=== PATIENT | male | born 1955 | race Caucasian/White ===

== ENCOUNTER 2017-01-06 16:40 | Emergency (ER) | payer OTHER ==
[~2017-01-06 16:40] MED LIST: ASPIRIN81 MG PO; AUGMENTIN PO; COMPAZINE5 M1; DECADRON PO; FAMOTIDINE20 MG PO; FLONASE16 GM; LASIX20 MG PO; MIRALAX17 GM PO; MORPHINE SULFAT60 MG PO; REMERON30 MG PO; SENOKOT S1 TA1 PO; VELCADE INJ; ZOVIRAX400 MG PO; [UNRECOGNIZED DRUG - OTHER] INJ
[2017-01-07] MEDS ORDERED: MORPHINE SULFAT30 M3 PO (11:36)
[2017-01-07] MEDS ORDERED: PATIENT'S PHARMACY (11:36)
[2017-01-07] MEDS ORDERED: PROAIR HFA8.5 GM INH (11:36)
[2017-01-07] MEDS ORDERED: ACYCLOVIR200 MG PO (11:37)
[2017-01-07] MEDS ORDERED: GABAPENTIN300 M2 PO (11:37)
[2017-01-07] MEDS ORDERED: ASPIRIN81 MG PO (18:03)
== END 2017-01-07 | disposition home or self-care (01) ==
LOC: CED 16:40
DX: Z53.21 Procedure and treatment not carried out due to patient leaving prior to being seen by health care provider (principal)
CPT/HCPCS: J2405

== ENCOUNTER 2017-01-07 10:23 | Inpatient (IN) | payer OTHER ==
--- NOTE | ~2017-01-07 | CR63 ---
[facility] A Service of [facility] & [facility] RADIOLOGY TEXT RESULTS PATIENT: JORDAN PURVIS LOCATION: [facility] : 54 UNIT #: [id number] AGE: [address]: Johnny Mckeon MD SEX: M ORDER DR: [id number] [facility] [address] [facility]. [place], [place] [address] [id number] I MR#: [id number] Acc #: [id number] NAME: JORDAN PURVIS : 1955 SEX: M STUDY DATE/TIME: 01/07/2017 12:37 [facility]85 STUDY DESCRIPTION: CR Chest 2 View Attending Physician: Nancy Alanis M.D. Ordering Physician: Kit Hurley M.D. Primary Care Physician: Dov Tracy M.D. MEDICAL IMAGING REPORT This report is preliminary unless electronic signature is present EXAM Portable chest 01/07/2017 COMPARISON STUDIES None CLINICAL HISTORY Short of air. Cough and congestion, symptoms for 1 week. FINDINGS Heart size is normal. Minimal subtle interstitial prominence at the right lung base without consolidation, question mild right lower lobe interstitial infiltrate. Left lung is clear, the exam is otherwise unremarkable. Dictated by... Bryant Ochoa M.D. THIS IS AN ELECTRONICALLY VERIFIED REPORT Bryant Ochoa M.D. at 01/08/2017 3:52 PM SHANON/bobby TD: 01/07/2017 17:28 JOB #: [id number] MEDICAL IMAGING REPORT Page 1 of 1 COPY
--- NOTE | ~2017-01-07 | HP ---
Unit #: [id number] #: [id number] Patient: JORDAN PURVIS [id number] [address] [place], [place] [address] [id number] I MR#: [id number] NAME: JORDAN PURVIS ROOM: 75923 Age: 61 Sex: M Admission Date: 01/07/2017 : 1955 Attending Physician: Nancy Alanis M.D. Primary Care Physician: Dov Tracy M.D. HISTORY AND PHYSICAL CHIEF COMPLAINT Abnormal labs. HISTORY OF PRESENT ILLNESS The patient is a 61-year-old male with a past medical history of multiple myeloma, status post stem cell transplant, who presented to the emergency department for evaluation of the above. The patient states that he has been feeling bad since January 01, 2017, when he had a prolonged time in the airport at [place]. He states that he has had "chest congestion." He has had increasing shortness of breath and productive cough. He reports chills, but no documented fever. He apparently saw his primary care physician yesterday and was told that he had abnormal labs and to go to the emergency department for further evaluation. White blood cell count was noted to be 1.7 in the office. The patient came to the emergency department yesterday but left before being seen. Today, he called Dr. Tracy and was told to come to the emergency department for further evaluation. In the emergency department, chest x-ray was done and showed possible mild infiltrate at the right base. Laboratory is notable for a white blood cell count of 1.1 with an absolute neutrophil count of 385 and platelets of 86,000. He was given one liter of normal saline in the emergency department, as well as Rocephin and azithromycin. He is being admitted to [facility] for evaluation and further treatment. PAST MEDICAL HISTORY 1. Admission to [facility] about a year ago for multiple myeloma-related issue (no records). 2. Multiple myeloma, status post stem cell transplant in November 2015, followed by Dr. Hebert. He is currently receiving Revlimid. He last saw Dr. Hebert within the past month. He did receive radiation treatment, six out of 10 planned treatments in 2014. PAST SURGICAL HISTORY 1. Colonoscopy on October 23, 2015, showed small internal hemorrhoids, mild sigmoid and descending colon diverticulosis, and a large polyp in the transverse colon. Pathology report showed tubular villous adenoma, but no high-grade dysplasia or malignancy was identified. 2. Stem cell transplant. 3. Kyphoplasty. SOCIAL HISTORY The patient lives with his . He is currently on disability. He Unit #: [id number] #: [id number] Patient: JORDAN PURVIS states that he worked at the [employer]. He quit smoking four to five years ago. He denies alcohol use. FAMILY HISTORY Notable for his dad committing suicide. He states that his mother is in her 80s and is healthy. ALLERGIES No known allergies. HOME MEDICATIONS 1. Morphine sulfate 30 mg daily. 2. ProAir q.8 hours p.r.n. 3. Gabapentin 600 t.i.d. 4. Acyclovir 400 mg twice daily. REVIEW OF SYSTEMS A complete review of systems is negative except as indicated in the History of Present Illness. The patient states that he has had decreased appetite. He denies any vomiting or diarrhea. He states that he has lost an unknown amount of weight within the past week. PHYSICAL EXAMINATION VITAL SIGNS: Temperature is 98.3, pulse 84, respirations 18, blood pressure 103/66, and oxygen saturation is 93% on room air. GENERAL: Patient is a very pleasant male who is awake, alert, and in no acute distress. HEENT: Head is atraumatic. Mucous membranes are moist. NECK: Supple. Trachea is midline. CARDIOVASCULAR: Regular rate and rhythm. LUNGS: A few scattered rhonchi. Breathing is not labored. ABDOMEN: Soft and nontender with bowel sounds present in all four quadrants. EXTREMITIES: Nontender with no pedal edema. NEUROLOGIC: Patient is awake and alert. He follows commands. PSYCHIATRIC: Mood and affect are normal. Patient is cooperative. SKIN: Skin of examined areas is warm and dry. DIAGNOSTIC STUDIES LABORATORY: Comprehensive metabolic panel notable for sodium of 132, potassium 3.4, CO2 of 21, anion gap 8, glucose 160, and calcium is 7.9 but corrects to 8.4 when albumin of 3.4 is accounted for. INR is 1.1. Complete blood count notable for white blood cell count of 1.1, absolute neutrophil count is 385, hemoglobin and hematocrit 12.8 and 39.2, respectively, and platelets are 86,000. Lactic acid is 1. IMAGING: Chest x-ray shows interstitial prominence involving the right base concerning for mild infiltrate. ASSESSMENT The patient is a 61-year-old male with: 1. Pneumonia. The patient received Rocephin and azithromycin in the emergency department. 2. Severe neutropenia with an absolute neutrophil count of 385. The patient has reported chills but no documented fever. He is afebrile in the emergency department today. He states that his "counts have been good." He is not sure if he has received Granix in the past. He is currently on Revlimid which is likely contributing to Unit #: [id number] #: [id number] Patient: JORDAN PURVIS neutropenia. 3. Thrombocytopenia. The patient's platelet count is 86,000 with no baseline for comparison. Again, this is likely related to Revlimid. 4. Multiple myeloma followed by Dr. Hebert. 5. Hypokalemia. 6. Former smoker. PLAN 1. Admit to intermediate level. 2. Healthy heart diet. 3. Normal saline at 75 mL/hour. 4. Blood cultures x2. 5. Sputum culture and sensitivity. 6. Supplemental oxygen. 7. Rocephin and azithromycin pending further workup. 8. Procalcitonin level. 9. Reverse isolation. 10. Consult Dr. Patel regarding multiple myeloma and severe neutropenia. 11. Get records from [facility]. 12. Check magnesium level. 13. Potassium/magnesium protocol. 14. Check EKG and cardiac enzymes. 15. Monitor blood pressure closely. 16. Repeat labs in the morning. 17. SCDs for DVT prophylaxis. 18. Additional workup and consultants based on above. 1. Dictated by Angela Radford/ron TD: 01/07/2017 16:35 JOB #: [id number] HISTORY AND PHYSICAL Page 1 of 1 X Nancy Alanis MD X HISTORY AND PHYSICAL
--- NOTE | ~2017-01-07 | A ---
[facility] Nutrition Therapy DATE: 01/08/17 Patient: JORDAN PURVIS Physician: MARIPOSA Address: [address] Room/Bed: [address] [place] [address], Zip: [place] [address] Admit Date: 01/07/17 Date of : [birth year] Height: 6 5 Weight: 200 90.71 NUTRITIONAL ASSESSMENT: REASON: 2 nutritional risk points re: 10# unintentional weight loss. Pt is a 61 y/o male admitted for PNA. PMH: multpile myeloma, s/p stem cell transplant Anthropometrics: ht: 6'5" wt: 200# (91 kg) BMI 23 Labs: Na+ 134, Ca++ 7.0, Alb 2.8 Meds: NaCl, zithromax, granix, nicorette, neurotin, zovirax, zofran, mag-sulfate I/O & Bowel function: 225/?. No BM noted. Skin Integrity: no breakdown. No edema. Diet: healthy heart Assessment: Chart reviewed, events noted. Pt seen regarding 2 nutritional risk points for 10# unintentional weight loss. RD internal communications specialist visited pt at bedside. Pt reports having ~10# weight loss over an unknown amount of time. Pt reports he usually eats 1-2 meals per day and has had somewhat of a poor appetite, but usually does not feel like eating because he is "just tired" since his sickness began. RD internal communications specialist viewed the pt's lunch tray, which he consumed 75% of. RD internal communications specialist encouraged pt to continue adequate intake of his meals, and stressed the importance of proper nutrition. RD internal communications specialist offered to order pt supplements, and pt agreed to magic cup with dinner. Pt voiced no other questions at this time. RD will continue to follow. Dx: Unintentional weight loss r/t PMH, current clinical condition, poor appetite AEB pt report, ~10# weight loss. Intervention: 1. Magic cup with dinner Monitoring, Evaluation and Goals: 1. Weight; promote weight maintenance, prevent unintentional weight loss 2. PO intake; consume >50% of all meals 3. GI; promote regular GI function Recommendations: 1. Magic Cup vanilla with dinner for supplemental nutrition. [facility] Nutrition Therapy DATE: 01/08/17 Patient: JORDAN PURVIS Physician: MARIPOSA Address: [address] [facility] Room/Bed: [address] [place] [address], Zip: [place] [address] Admit Date: 01/07/17 Date of : [birth year] Height: 6 5 Weight: 200 90.71 2. Encourage adequate PO intake. Pt is at mild nutritional risk. Respectfully, KETTY VILLARREAL, internet consultant Martha Brown RD, LD [employer] [facility] cc: client file
--- NOTE | ~2017-01-07 | CT57 ---
[facility] A Service of [facility] & [facility] RADIOLOGY TEXT RESULTS PATIENT: JORDAN PURVIS [facility] 566-01 : 53 UNIT #: [id number] AGE: [address]: Johnny Mckeon MD SEX: M ORDER DR: [id number] [facility] [address] [facility]. [place], [place] [address] [id number] I MR#: [id number] #: [id number] NAME: JORDAN PURVIS : 1955 SEX: M STUDY DATE/TIME: 01/08/2017 11:46 [facility]IT[facility] ROOM: [facility] STUDY DESCRIPTION: CT Chest Wo Cont Attending Physician: Johnny Mckeon M.D. Ordering Physician: Johnny Mckeon M.D. Primary Care Physician: Dov Tracy M.D. MEDICAL IMAGING REPORT This report is preliminary unless electronic signature is present EXAM CT chest without contrast. HISTORY Shortness of air, cough and congestion for 1 week. Questionable right lower lobe interstitial infiltrate on chest x-ray yesterday. TECHNIQUE This CT exam was performed with one or more of the following radiation dose reduction techniques: automatic exposure control, adjustment of mA and/or kV according to patient size, and iterative reconstruction. FINDINGS CT chest without contrast demonstrates moderately extensive patchy infiltrates in the posterior right lower lobe and additional mild patchy multifocal infiltrates in the posterior right upper lobe and in the posterior and inferior left lower lobe. Although, nonspecific, these are concerning for multifocal pneumonia. There is also minimal atelectasis in the posterior left lower lobe and mild atelectasis in the posteromedial right lower lobe. Multilevel xqfx-fe-ygyaevum thoracic and upper lumbar vertebral body compression fractures. These appear chronic. There are also vertebroplasties at T12, L2 and L3. Diffuse mottled sclerosis throughout the majority of the thoracic spine. Considerations include metabolic bone disease versus myeloma, given the patient's reported history of myeloma. Mild subcarinal adenopathy measuring 1.5 cm in short axis dimension. This could be reactive or inflammatory, but is nonspecific. No additional adenopathy. Normal caliber thoracic aorta. Small calcified left hilar nodes and incidental small calcified granuloma in the left lower lobe. IMPRESSION 1. Moderate patchy multifocal airspace infiltrates in the right lower STS. [facility] A Service of [facility] RADIOLOGY TEXT RESULTS PATIENT: JORDAN PURVIS [facility] 566-01 : 53 UNIT #: [id number] AGE: [address]: Johnny Mckeon MD SEX: M ORDER DR: lobe and mild additional patchy multifocal airspace infiltrates in the posterior right upper lobe and posterior left lower lobe. Although, nonspecific, these could be secondary multifocal pneumonia. 2. Mild atelectasis in the posterior left lower lobe and in the posteromedial right lower lobe, slightly greater on the right. There is also a very tiny right pleural effusion. 3. Mild subcarinal adenopathy measuring 1.5 cm. This is also nonspecific but could be reactive or inflammatory. 4. Multilevel heterogeneous sclerosis throughout the majority of the thoracic vertebra with [id number] multilevel thoracic and upper lumbar vertebral body compression fractures. These appear chronic. Considerations include metabolic bone disease or myeloma, given the patient's reported history. Lower thoracic and upper lumbar vertebroplasties. Dictated by... Conor Desouza M.D. THIS IS AN ELECTRONICALLY VERIFIED REPORT Conor Desouza M.D. at 01/08/2017 10:47 PM TIFFANIE/constantin TD: 01/08/2017 19:49 JOB #: [id number] MEDICAL IMAGING REPORT Page 1 of 1 COPY
--- NOTE | ~2017-01-07 | CO ---
Unit #: [id number] #: [id number] Patient: JORDAN PURVSI [id number] [address] [address] [id number] I MR#: [id number] NAME: JORDAN PURVIS ROOM: 566 Age: 61 Sex: M Admission Date: 01/07/2017 : 1955 Attending Physician: Johnny Mckeon M.D. Primary Care Physician: Dov Tracy M.D. CONSULTATION REPORT NOTE This is a patient of [facility]. His oncology is Dr. Hebert. CHIEF COMPLAINT Multiple myeloma, autologous stem cell transplant during November 2015, maintenance Revlimid, came in with chest pain. HISTORY OF PRESENT ILLNESS This is a 61-year-old male who was diagnosed with multiple myeloma during March 2015. Patient had chemotherapy at [facility]. We do not have records. He had a stem cell transplant during November 2015 at [facility]. At present, he is taking Revlimid. This is maintenance treatment. Today, CBC showed WBC 1.2, hemoglobin 11.5, platelets 80. Creatinine 0.8. LFTs normal. INTERIM HISTORY He came with atypical chest pain and some coughing. Chest x-ray showed right-sided infiltrate. He has on and off wheezing. REVIEW OF SYSTEMS CONSTITUTIONAL: No fever, no chills, no sweats, no weight loss. EYES: No visual symptoms. EARS, NOSE AND THROAT: There is no runny nose or sore throat or difficulty hearing. CARDIOVASCULAR: No chest pain. No shortness of breath. No palpitations. No orthopnea. No PND. RESPIRATORY: No cough. No wheezing. No hemoptysis. GASTROINTESTINAL: No nausea, vomiting, diarrhea, constipation, hematochezia or melena. GENITOURINARY: No urinary frequency, hesitancy or urgency. No blood in the urine. MUSCULOSKELETAL: No muscle or joint pain. NEUROLOGIC: No headache. No numbness or tingling. No weakness. No seizure. PSYCHIATRIC: No anxiety, depression or mood disturbance. ENDOCRINE: No excessive urination or thirst. DERMATOLOGIC: No rash or change in the skin. ALLERGIC/IMMUNOLOGIC: No symptoms. HEMATOLOGIC/LYMPHATIC: Denies any symptoms. Unit #: [id number] #: [id number] Patient: JORDAN PURVIS PAST MEDICAL HISTORY Multiple myeloma, status post autologous stem cell transplant on maintenance Revlimid. No other medical conditions. PAST SURGICAL HISTORY Some surgery on the wrist. ALLERGIES None. SOCIAL HISTORY Used to smoke two packs per day for 20 years, quit many years ago. Denies alcohol use. He used to work as a builder. FAMILY HISTORY Negative for cancer. PHYSICAL EXAMINATION GENERAL: Patient is comfortable. ECOG is 0. The patient is pleasant. VITAL SIGNS: Afebrile. Pulse 77, respiratory rate 18, O2 saturation room air 96%, blood pressure 126/79. HEENT: Moist mucosa. Pupils equally reactive to light. Extraocular muscles intact. Sclerae anicteric. No obvious bleeding from nasal mucosa or oral mucosa. Scalp normal. Hearing normal. NECK: No JVD. No lymphadenopathy. LYMPHATIC/HEMATOLOGIC: There is no palpable adenopathy in the neck, axilla or inguinal area. CARDIOVASCULAR: S1, S2. Regular rate and rhythm. No S3 or S4. RESPIRATORY: Chest symmetrical, normal. Clear to auscultation bilaterally. No wheezes, no rales, no rhonchi. No dullness to percussion. ABDOMEN/GASTROINTESTINAL: Abdomen is soft, nontender, nondistended. No hepatosplenomegaly. EXTREMITIES: There is no clubbing, no cyanosis, no edema. No varicose veins. NEUROLOGICAL: Patient is alert, awake and oriented x3. Cranial nerves II-XII are intact. Sensory grossly intact. Motor is 4/5 in all four extremities. Gait is normal. Station is normal. Language is normal. Memory is normal. DTRs +2 in all four extremities. MUSCULOSKELETAL: No joint swelling. No bony tenderness. No muscle tenderness. SKIN: No petechiae, no rash, no ecchymosis. PSYCHIATRIC: No anxiety. No delusions or hallucinations. There is no agitation. Eye contact is normal. Affect is appropriate. There is no flight of ideas. DIAGNOSTIC STUDIES LABORATORY: As mentioned above. IMAGING: Chest x-ray 01/07/2017. On the right lower lobe, there is a possible consolidation. ASSESSMENT AND PLAN This 61-year-old male has the following active issues: 1. Multiple myeloma. The patient was diagnosed with multiple myeloma March 2015 requiring a stem cell in November 2015, now on Revlimid. Unit #: [id number] #: [id number] Patient: JORDAN PURVIS He will follow with Dr. Hebert at [facility]. 2. . He most likely has a pneumonia in the right lower lobe. I have ordered CT of the chest. He is on antibiotics. I encouraged him to stay in the hospital for a couple of days because he is neutropenic. 3. Leukopenia. This is due to Revlimid. Will give him Granix. DISCUSSION I had an extensive discussion with the patient. I encouraged him to stay one to two days in the hospital and receive antibiotics because he is neutropenic and he may become septic. Dictated by... Angela Castorena TD: 01/08/2017 17:06 JOB #: [id number] CONSULTATION REPORT Page 1 of 1 X Meenu Patel MD X CONSULTATION REPORT
--- NOTE | ~2017-01-07 | EKG ---
PATIENT: JORDAN PURVIS UNIT #: [id number] Ventricular Rate: 72 BPM Atrial Rate: 72 BPM P-R Interval: 140 ms QRS Duration: 96 ms Q-T Interval: 416 ms QTC Calculation(Bezet): 455 ms P [place]: 23 degrees Calculated R [place]: 25 degrees Calculated T [place]: 43 degrees Diagnosis Line: Normal sinus rhythm Diagnosis Line: Normal ECG Diagnosis Line: No previous ECGs available Diagnosis Line: Confirmed by ANNELIESE DAVENPORT MD ([id number]) on Diagnosis Line: 01/08/2017 6:49:08 AM INTERPRETING MD: LIZBETH
--- NOTE | ~2017-01-07 | DS ---
Unit #: [id number] #: [id number] Patient: JORDAN PURVIS [id number] [address] [address] [id number] MR#: [id number] NAME: JORDAN PURVIS ROOM: 566 Age: Sex: M Admission Date: 01/07/2017 : 1955 Discharge Date: 01/09/2017 Attending Physician: Johnny Mckeon M.D. Primary Care Physician: Dov Tracy M.D. DISCHARGE SUMMARY DISCHARGE DIAGNOSES 1. Neutropenia improved. 2. Multiple myeloma. 3. History of stem cell transplant. 4. Bilateral pneumonia. This is a 61-year-old male with a history of multiple myeloma, as listed above, a stem cell transplant, who presented to the emergency room for abnormal labs. He also was complaining about some cough. On his labs he had a white cell count that was very low at 1.7. On admission it was 1.1. Patient was seen by hem/onc. He was given the neutrophil growth factor subcu. His white cell count has improved significantly. Additionally his CT of chest showed multiple bilateral infiltrate. He has been treated with the IV antibiotics, Rocephin and Zithromax. The patient has clinically improved significantly. He is afebrile. His white cell count is improved and is stable to be discharged home. CONSULTANTS Dr. Patel with hem/onc. DISCHARGE MEDICATIONS 1. Albuterol inhaler. 2. Gabapentin 600 mg p.o. t.i.d. 3. Acyclovir 400 mg p.o. b.i.d. 4. Morphine 30 mg p.o. daily. 5. Omnicef 300 mg p.o. b.i.d. for ten days. DISPOSITION To home. FOLLOWUP Follow with hem/onc group at the [facility]. Dictated by... Angela Browning/sarwat TD: 01/10/2017 11:40 JOB #: [id number] Unit #: [id number] #: [id number] Patient: JORDAN PURVIS DISCHARGE SUMMARY Page 1 of 1 X Fer Price MD DISCHARGE SUMMARY
[2017-01-07 11:26] LABS: BASOPHIL% 1.3 % (0-2.5); EOSINOPHIL% 0.2 % (0.0-7.0); HEMATOCRIT 39.2 % (38.0-50.0); HEMOGLOBIN 12.8 gm/dL (13.0-16.0); LYMPHOCYTE# 0.6 X10e3 (1.0-3.5); LYMPHOCYTE% 48.9 % (17.0-45.0); MEAN CELL VOLUME 98.3 FL (83-96); MEAN CORPUSCULAR HEMOGLOBIN 32.1 PG (28-34); MEAN CORPUSCULAR HGB CONC 32.7 g/dL (30-36); MEAN PLATELET VOLUME 7.2 FL (6.5-11.5); MONOCYTE# 0.2 X10e3 (0-1.0); MONOCYTE% 16.5 % (3.0-12.0); NEUTROPHIL# 0.4 X10e3 (1.5-7.1); NEUTROPHIL% 33.1 % (40-75); RED BLOOD COUNT 3.99 X10e (3.90-5.60); RED CELL DISTRIBUTION WIDTH 14.7 % (11.0-15.5); WHITE BLOOD COUNT 1.1 X10e3 (4.0-10.5)
[2017-01-07] MEDS ORDERED: PROAIR HFA8.5 GM INH (11:36)
[2017-01-07] MEDS ORDERED: MORPHINE SULFAT30 M3 PO (11:36)
[2017-01-07] MEDS ORDERED: PATIENT'S PHARMACY (11:36)
[2017-01-07] MEDS ORDERED: ACYCLOVIR200 MG PO (11:37)
[2017-01-07] MEDS ORDERED: GABAPENTIN300 M2 PO (11:37)
[2017-01-07 11:41] LABS: ALBUMIN SERUM 3.4 g/dL (3.5-5.0); BILIRUBIN, DIRECT 0.1 mg/dL (0.0-0.2); BILIRUBIN,INDIRECT 0.8 mg/dL (0.0-0.9); BILIRUBIN,TOTAL 0.9 mg/dL (0.2-2.0); BUN/CREATININE RATIO 17.27; CALCIUM SERUM 7.9 mg/dL (8.4-10.2); CREATININE SERUM 1.1 mg/dL (0.6-1.4); GLOM FILT RATE Estimated 71.6 mL/min (>60); POTASSIUM 3.4 mmol/L (3.5-5.1); PROTEIN TOTAL SERUM 6.4 g/dL (6.0-8.3)
[2017-01-07 11:49] LABS: INR 1.1; PARTIAL THROMBOPLASTIN TIME 33.4 SECONDS (23.5-31.3); PROTHROMBIN TIME (PATIENT) 11.4 SECONDS (10.0-11.7)
[2017-01-07 11:51] LABS: DIFF IND YES; PLATELET COUNT 86 X10e3 (140-420)
[2017-01-07 12:01] LABS: ANISOCYTOSIS SL; OVALOCYTES PRESENT; POIKILOCYTOSIS SL; RBC NORMAL YES
[2017-01-07 12:02] LABS: PLATELET ESTIMATE DECREASED (NORMAL)
[2017-01-07 14:53] LABS: URINE SOURCE CLEAN CATCH
[2017-01-07 15:08] LABS: URINE APPEARANCE CLEAR; URINE BILIRUBIN NEG (NEG); URINE BLOOD NEG (NEG); URINE COLOR DK YELLOW; URINE GLUCOSE NEG (NEG); URINE KETONE 2+ (NEG); URINE LEUKOCYTE ESTERASE NEG (NEG); URINE NITRATE NEG (NEG); URINE PROTEIN TRACE (NEG); URINE SPECIFIC GRAVITY 1.019 (1.003-1.035)
[2017-01-07 15:11] LABS: CULTURE INDICATED? NO
[2017-01-07 15:58] LABS: CK TOTAL 171 IU/L (36-174); MAGNESIUM 1.9 mg/dL (1.6-3.0)
[2017-01-07 16:16] LABS: %MB 2.5 % (0.0-4.0); MB 4.2 ng/ml
[2017-01-07 16:26] LABS: PROCALCITONIN <0.05 NG/ML
[2017-01-07] MEDS ORDERED: ASPIRIN81 MG PO (18:03)
[2017-01-07 22:19] LABS: %MB 2.7 % (0.0-4.0); MB 5.4 ng/ml
[2017-01-08 04:03] LABS: HEMATOCRIT 34.8 % (38.0-50.0); HEMOGLOBIN 11.5 gm/dL (13.0-16.0); MEAN CELL VOLUME 97.8 FL (83-96); MEAN CORPUSCULAR HEMOGLOBIN 32.4 PG (28-34); MEAN CORPUSCULAR HGB CONC 33.1 g/dL (30-36); MEAN PLATELET VOLUME 6.8 FL (6.5-11.5); RED BLOOD COUNT 3.56 X10e (3.90-5.60); RED CELL DISTRIBUTION WIDTH 14.5 % (11.0-15.5); WHITE BLOOD COUNT 1.2 X10e3 (4.0-10.5)
[2017-01-08 04:20] LABS: ALBUMIN SERUM 2.8 g/dL (3.5-5.0); BILIRUBIN,TOTAL 0.6 mg/dL (0.2-2.0); BUN/CREATININE RATIO 13.75; CREATININE SERUM 0.8 mg/dL (0.6-1.4); GLOM FILT RATE Estimated 95.8 mL/min (>60); MAGNESIUM 2.1 mg/dL (1.6-3.0); POTASSIUM 4.1 mmol/L (3.5-5.1); PROTEIN TOTAL SERUM 5.3 g/dL (6.0-8.3)
[2017-01-08 04:41] LABS: %MB 2.4 % (0.0-4.0); MB 4.7 ng/ml
[2017-01-09 07:31] LABS: HEMATOCRIT 35.3 % (38.0-50.0); HEMOGLOBIN 11.7 gm/dL (13.0-16.0); MEAN CORPUSCULAR HEMOGLOBIN 32.5 PG (28-34); MEAN CORPUSCULAR HGB CONC 33.2 g/dL (30-36); MEAN PLATELET VOLUME 7.2 FL (6.5-11.5); RED BLOOD COUNT 3.6 X10e (3.90-5.60)
[2017-01-09 07:32] LABS: WHITE BLOOD COUNT 3.8 X10e3 (4.0-10.5)
[2017-01-09 08:04] LABS: FERRITIN 106 ng/mL (24-336)
[2017-01-09 08:07] LABS: ALBUMIN SERUM 2.7 g/dL (3.5-5.0); BILIRUBIN,TOTAL 0.1 mg/dL (0.2-2.0); BUN/CREATININE RATIO 11.25; CALCIUM SERUM 7.3 mg/dL (8.4-10.2); CREATININE SERUM 0.8 mg/dL (0.6-1.4); GLOM FILT RATE Estimated 95.8 mL/min (>60); POTASSIUM 3.9 mmol/L (3.5-5.1); PROTEIN TOTAL SERUM 5.1 g/dL (6.0-8.3)
[2017-01-09] MEDS ORDERED: OMNICEF300 MG PO (13:28)
== END 2017-01-09 14:03 | disposition home or self-care (01) | DRG 808 ==
LOC: CED 10:23 → CEDOF 14:55 → C5C 14:55 → CED 15:10 → CEDOF 15:10 → C5C 17:48 → CEDOF 17:48 → C5C 01-08 06:22
PROVIDERS: Emergency Medicine; Family Medicine; Internal Medicine Hematology
DX: D70.2 Other drug-induced agranulocytosis (principal); J18.9 Pneumonia, unspecified organism; Z94.84 Stem cells transplant status; C90.00 Multiple myeloma not having achieved remission; Z87.891 Personal history of nicotine dependence; E87.6 Hypokalemia; T45.1X5A Adverse effect of antineoplastic and immunosuppressive drugs, initial encounter
CPT/HCPCS: 36415; 71020; 71250; 80048; 80053; 80076; 81003; 82308; 82550; 82553; 82607; 82728; 83540; 83550; 83605; 83735; 84132; 84484; 85025; 85027; 85610; 85730; 87040; 93005; 94640; 94760; 99285; J0456; J0696; J1447; J3475